=== PATIENT | female | born 1975 | race Hispanic/Latino ===

== ENCOUNTER 2024-04-27 18:15 | Emergency (ER) | payer OTHER ==
[2024-04-27 19:19] LABS: Specific Gravity 1.023 (1.005-1.030)
[2024-04-27 19:27] LABS: Absolute Eosinophils 0.2 K/uL (0-0.5); Absolute Lymphocytes (CBC) 2.9 K/uL (0.7-4.9); Absolute Monocytes 0.5 K/uL (0.1-1.3); Absolute Neutrophil 5.9 K/uL (1.8-8.0); Albumin 4.1 g/dL (3.4-5.0); Albumin/Globulin Ratio 0.9 (1.1-1.8); Anion Gap 8.9 mEq/L (5.0-15.0); Basophils % 0.5 % (0-1.3); Bilirubin Total 0.4 mg/dL (0.2-1.0); Eosinophils % 1.9 % (0-4.4); Globulin 4.4 g/dL (2.3-3.5); Hematocrit 45.3 % (36.0-45.0); Lymphocytes % 30.4 % (15.3-44.8); MCH 31.8 pg (27.0-35.0); MCHC 35.2 g/dL (32.0-36.0); MCV 90.4 fL (80-100); MPV 9.7 fL (7.6-11.3); Neutrophils % 62.2 % (41.7-73.7); Platelets 288 thou/uL (152-406); Potassium 3.9 mEq/L (3.5-5.1); Protein, Total 8.5 g/dL (6.4-8.2); RBC Red Blood Cell Count 5.01 M/uL (3.86-4.86); Red Cell Distribution Width 13.2 % (12.1-15.2)
[2024-04-27 19:33] LABS: Calcium Oxalate Crystals- Ur Few /HPF (None Seen); Specific Gravity 1.023 (1.005-1.030); Sqamous Epithelial <5 /HPF (None Seen); Urine Bacteria None Seen /HPF (<20); Urine Bilirubin NEGATIVE (Negative); Urine Blood Negative (Negative); Urine Clarity Extremely Turbid (Clear); Urine Color Yellow (Yellow); Urine Culture Reflex Order NOT NEEDED; Urine Glucose 3+ (Negative); Urine Ketones NEGATIVE (Negative); Urine Micro Reflex YN NO BILL MICROSCOPIC; Urine Mucus Slight /HPF (None Seen); Urine Nitrite NEGATIVE (Negative); Urine Protein TRACE (Negative); Urine RBC <5 /HPF (None Seen); Urine Urobilinogen Normal (Normal); Urine WBC None Seen /HPF (<5); Urine pH 6.5 (5.0-7.0)
[2024-04-27] MEDS ORDERED: ONDANSETRON 4 MG/2 ML VIAL ONE (20:00)
[2024-04-27] MEDS ORDERED: NA CHLORIDE 0.9% 1,000 ML ONE (20:01)
[2024-04-27] MEDS ORDERED: FAMOTIDINE 20 MG/2 ML VIAL IV ONE (20:01)
[2024-04-27 20:54] LABS: SARS-CoV-2 Antigen CONTROL BLUE LINE VIS/BG OK; SARS-CoV-2 Antigen Rapid Res Negative (Negative)
[2024-04-27 20:58] LABS: Magnesium 2.4 mg/dL (1.6-2.4); Troponin High Sensitivity 3.2 pg/mL (<58.9)
--- NOTE | 2024-04-27 20:58 | RAD REPORT ---
EXAM DESCRIPTION: CT - Head Brain Wo Cont - 04/27/2024 7:29 pm CLINICAL HISTORY: Weakness;Headache COMPARISON: No comparisons TECHNIQUE: Noncontrast head CT images were obtained without IV contrast. Multiplanar reformats were generated and reviewed. All CT scans are performed using dose optimization technique as appropriate and may include automated exposure control or mA/KV adjustment according to patient size. FINDINGS: No intracranial hemorrhage, mass, or edema. Midline structures are unremarkable. Normal ventricular caliber for age. Magana-white matter differentiation is preserved, without evidence of acute infarct. No abnormal extra- axial fluid collections. Mastoid air cells and visualized portions of the paranasal sinuses are clear. No acute bony findings. IMPRESSION: No evidence of an acute intracranial process.
--- NOTE | 2024-04-27 21:07 | RAD REPORT ---
[facility] 7[facility]55 pm CLINICAL HISTORY: weakness COMPARISON: No comparisons TECHNIQUE: Portable AP view of the chest. FINDINGS: The lungs are clear. No pneumothorax or effusion. The cardiomediastinal contours are unre markable. Lower cervical anterior plating hardware present. IMPRESSION: No acute cardiopulmonary process.
[2024-04-27 21:09] LABS: PT Prothrombin Time 11.9 SECONDS (9.4-12.5); Protime INR 1.06
--- NOTE | 2024-04-27 22:28 | ER ---
[facility] Name: Carly Gray Age: 48 yrs Sex: Female : 1975 Arrival Date: 04/27/2024 Time: 18:15 Bed 4 Private MD: Diagnosis: Nausea with vomiting, unspecified;Headache;Weakness;Diabetes mellitus due to underlying condition with hyperglycemia Presentation: 04/27 18:27 Chief complaint: Patient states: N/V, chills, headache, weakness X 3 days. Coronavirus ld1 screen: At this time, the client does not indicate any symptoms associated with coronavirus-19. Ebola Screen: No symptoms or risks identified at this time. Initial Sepsis Screen: Does the patient meet any 2 criteria? No. Patient's initial sepsis screen is negative. Does the patient have a suspected source of infection? No. Patient's initial sepsis screen is negative. Risk Assessment: Do you want to hurt yourself or someone else? Patient reports no desire to harm self or others. Onset of symptoms was April 27, 2024. 18:27 Method Of Arrival: Ambulatory ld1 18:27 Acuity: LEE 3 ld1 Triage Assessment: 18:28 General: Appears in no apparent distress. comfortable, Behavior is calm, cooperative, ld1 appropriate for age. Pain: Denies pain. EENT: No signs and/or symptoms were reported regarding the EENT system. Neuro: Level of Consciousness is awake, alert, obeys commands, Oriented to person, place, time, situation. Cardiovascular: Capillary refill < 3 seconds Patient's skin is warm and dry. Respiratory: Airway is patent Respiratory effort is even, unlabored. GI: Abdomen is round non-distended, Reports nausea, vomiting. : No signs and/or symptoms were reported regarding the genitourinary system. Derm: No signs and/or symptoms reported regarding the dermatologic system. Musculoskeletal: No signs and/or symptoms reported regarding the musculoskeletal system. HERBOLOGIST: 18:28 LMP N/A - Hysterectomy, Not ld1 Historical: - Allergies: 18:26 Sulfa (Sulfonamide Antibiotics); ld1 - Home Meds: 18:29 amlodipine 5 mg tablet 1 tab daily [Active]; lisinopril 5 mg Oral tablet 1 tab daily ld1 [Active]; metoprolol tartrate 25 mg Oral tablet daily [Active]; - PMHx: 18:29 Hypertensive disorder; Diabetes mellitus; ld1 - PSHx: 18:29 Total abdominal hysterectomy; ld1 - Immunization history:: Adult Immunizations up to date. - Infectious Disease History:: Denies. - Social history:: Smoking status: Patient reports the use of cigarette tobacco products, smokes one pack cigarettes per day. Screenin:41 [facility] ED Fall Risk Assessment (Adult) History of falling in the last 3 months, cm10 including since admission No falls in past 3 months (0 pts) Confusion or Disorientation No (0 pts) Intoxicated or Sedated No (0 pts) Impaired Gait No (0 pts) Mobility Assist Device Used No (0 pt) Altered Elimination No (0 pt) Score/Fall Risk Level 0 - 2 = Low Risk Oriented to surroundings, Maintained a safe environment, Assessed \T\ reinforced patient's understanding of fall precautions, Hourly rounding (assess needs \T\ fall precautionary measures) done. Abuse screen: Denies threats or abuse. Denies injuries from another. Nutritional screening: No deficits noted. Tuberculosis screening: No symptoms or risk factors identified. Assessment: 18:43 General: Appears in no apparent distress. uncomfortable, Behavior is calm, cooperative. cm10 Neuro: No deficits noted. Level of Consciousness is awake, alert, obeys commands, Oriented to person, place, time, situation, Appropriate for age. Respiratory: No deficits noted. Airway is patent Respiratory effort is even, unlabored, Respiratory pattern is regular, symmetrical. GI: Reports nausea, vomiting. Derm: No deficits noted. Skin is intact, Skin is pink, warm \T\ dry. Musculoskeletal: Range of motion: intact in all extremities. Vital Signs: 18:27 Pulse 74; Resp 18; Pulse Ox 100% on R/A; Weight 90.72 kg; Height 5 ft. 5 in. ; Pain ld1 0/10; 18:28 BP 176 / 93; ld1 18:28 Temp 98.1(O); ld1 19:00 BP 127 / 71; Pulse 74; Resp 18; Pulse Ox 100% on R/A; Pain 2/10; al5 21:00 BP 114 / 72; Pulse 68; Resp 18; Pulse Ox 100% on R/A; Pain 0/10; al5 18:27 Body Mass Index 33.28 (90.72 kg, 165.1 cm) ld1 18:27 Pain Scale: Adult ld1 19:00 Pain Scale: Adult al5 21:00 Pain Scale: Adult al5 ED Course: 18:18 Patient arrived in ED. im 18:28 Triage completed. ld1 18:29 Arm band placed on right wrist. ld1 18:30 Bradford Mcgrath PA is PHCP. cp 18:30 Clayton Khan MD is Attending Physician. cp 18:31 Inserted saline lock: 20 gauge in right antecubital area, using aseptic technique. ld1 Blood collected. 18:37 Marissa Dewey, RONIT is Primary Nurse. al5 18:41 Patient has correct armband on for positive identification. Bed in low position. Call cm10 light in reach. Side rails up X2. Provided Education on: ER process and procedures. Pulse ox on. NIBP on. 18:41 Door closed. Lights dimmed. Warm blanket given. cm10 19:30 CT Head Brain wo Cont In Process Unspecified. EDMS 19:56 XRAY Chest (1 view) In Process Unspecified. EDMS 20:23 Influenza Screen (a \T\ B) Sent. al5 20:23 SARS RAPID Sent. al5 20:24 Magnesium Sent. al5 20:24 PT-INR Sent. al5 20:24 Troponin HS Sent. al5 22:36 No provider procedures requiring assistance completed. IV discontinued, intact, cm10 bleeding controlled, No redness/swelling at site. Pressure dressing applied. Administered Medications: 20:23 Drug: NS 0.9% IV 1000 ml IV at 1 bolus Per protocol; 1000 mL bolus Route: IV; Rate: 1 al5 bolus; Site: right antecubital; 21:14 Follow up: Response: No adverse reaction; Marked relief of symptoms; IV Intake: 1000ml al5 22:00 Follow up: Response: No adverse reaction; IV Status: Completed infusion; IV Intake: cm10 1000ml 20:23 Drug: Ondansetron IVP 4 mg IVP once; over 2 minutes Route: IVP; Site: right antecubital;al5 21:14 Follow up: Response: No adverse reaction; Marked relief of symptoms al5 20:23 Drug: Famotidine IVP 20 mg IVP once; dilute with 10 mL 0.9% NaCl; give over 2 minutes al5 Route: IVP; Site: right antecubital; 21:14 Follow up: Response: No adverse reaction; Marked relief of symptoms al5 Medication: 18:43 VIS not applicable for this client. cm10 Intake: 21:14 IV: 1000ml; Total: 1000ml. al5 22:00 IV: 1000ml; Total: 2000ml. cm10 Outcome: 22:27 Discharge ordered by MD. cp 22:36 Discharged to home ambulatory, with family, cm10 22:36 Condition: good 22:36 Discharge instructions given to patient, Instructed on discharge instructions, follow up and referral plans. medication usage, Demonstrated understanding of instructions, follow-up care, medications, Prescriptions given X 1, 22:36 Patient left the ED. cm10 Signatures: Dispatcher [employer] EDMS Bradford Mcgrath PA PA cp Sims, Lauren, RN RN ld1 Mandi Hayward Clarissa, RN RN cm10 Marissa Dewey RN RN al5 Corrections: (The following items were deleted from the chart) 18:27 18:26 Allergies: No Known Allergies; ld1 ld1 18:31 18:29 PMHx: None; ld1 ld1
--- NOTE | 2024-04-27 22:28 | EDPHYS ---
Physician Documentation [facility] Name: Carly Gray Age: 48 yrs Sex: Female : 1975 Arrival Date: 04/27/2024 Time: 18:15 Bed 4 Private MD: ED Physician Clayton Khan HPI: 04/27 19:15 This 48 yrs old Female presents to ER via Ambulatory with complaints of cp General Weakness, Nausea. 19:15 The patient presents to the emergency department with nausea, that is moderate, cp vomiting, that is intermittent. 19:15 Onset: The symptoms/episode began/occurred 3 day(s) ago. Associated signs and symptoms: cp Pertinent positives: fatigue, general weakness, Pertinent negatives: abdominal pain, fever, chest pain. Severity of symptoms: in the emergency department the symptoms are unchanged despite home interventions. [employer] SPECIALIST: 18:28 LMP N/A - Hysterectomy, Not ld1 Historical: - Allergies: 18:26 Sulfa (Sulfonamide Antibiotics); ld1 - Home Meds: 18:29 amlodipine 5 mg tablet 1 tab daily [Active]; lisinopril 5 mg Oral tablet 1 tab daily ld1 [Active]; metoprolol tartrate 25 mg Oral tablet daily [Active]; - PMHx: 18:29 Hypertensive disorder; Diabetes mellitus; ld1 - PSHx: 18:29 Total abdominal hysterectomy; ld1 - Immunization history:: Adult Immunizations up to date. - Infectious Disease History:: Denies. - Social history:: Smoking status: Patient reports the use of cigarette tobacco products, smokes one pack cigarettes per day. ROS: 19:20 Constitutional: Positive for chills, fatigue, Negative for body aches, fever, cp 19:20 Eyes: Negative for injury, pain, redness, and discharge, cp 19:20 ENT: Negative for drainage from ear(s), ear pain, sore throat, difficulty swallowing, difficulty handling secretions, 19:20 Cardiovascular: Negative for chest pain, 19:20 Respiratory: Negative for cough, shortness of breath, wheezing, 19:20 Abdomen/GI: Positive for nausea, Negative for diarrhea, constipation, active vomiting, 19:20 Back: Negative for pain at rest, pain with movement, 19:20 Neuro: Positive for headache, weakness, Negative for altered mental status, syncope, 19:20 All other systems are negative, Exam: 19:23 Constitutional: The patient appears in no acute distress, alert, awake, cp non-diaphoretic, non-toxic, well developed, well nourished, 19:23 Head/Face: Normocephalic, atraumatic. cp 19:23 Eyes: Periorbital structures: appear normal, Conjunctiva: normal, no exudate, no injection, Sclera: no appreciated abnormality, Lids and lashes: appear normal, bilaterally, 19:23 ENT: External ear(s): are unremarkable, Nose: is normal, Mouth: Lips: moist, Oral mucosa: pink and intact, moist, Posterior pharynx: is normal, airway is patent, no erythema, no exudate, 19:23 Neck: ROM/movement: is normal, is supple, without pain, no range of motions limitations, no meningismus, no nuchal rigidity, 19:23 Chest/axilla: Inspection: normal, 19:23 Cardiovascular: Rate: normal, Rhythm: regular, Edema: is not appreciated, JVD: is not appreciated, 19:23 Respiratory: the patient does not display signs of respiratory distress, Respirations: normal, no use of accessory muscles, no retractions, labored breathing, is not present, Breath sounds: are clear throughout, no decreased breath sounds, no stridor, no wheezing, 19:23 Abdomen/GI: Inspection: abdomen appears normal, Palpation: abdomen is soft and non-tender, in all quadrants, 19:23 Back: CVA tenderness, is absent, 19:23 Skin: cellulitis, is not appreciated, no rash present. 19:23 Neuro: Orientation: to person, place \T\ time. Mentation: is normal, Motor: moves all fours, no focal deficits, 20:12 ECG was reviewed by the Attending Physician. cp Vital Signs: 18:27 Pulse 74; Resp 18; Pulse Ox 100% on R/A; Weight 90.72 kg; Height 5 ft. 5 in. ; Pain ld1 0/10; 18:28 BP 176 / 93; ld1 18:28 Temp 98.1(O); ld1 19:00 BP 127 / 71; Pulse 74; Resp 18; Pulse Ox 100% on R/A; Pain 2/10; al5 21:00 BP 114 / 72; Pulse 68; Resp 18; Pulse Ox 100% on R/A; Pain 0/10; al5 18:27 Body Mass Index 33.28 (90.72 kg, 165.1 cm) ld1 18:27 Pain Scale: Adult ld1 19:00 Pain Scale: Adult al5 21:00 Pain Scale: Adult al5 MDM: 18:31 Patient medically screened. cp 22:25 Data reviewed: vital signs, nurses notes, lab test result(s), EKG, radiologic studies, cp CT scan, plain films. 22:25 Differential diagnosis: gastritis, viral gastroenteritis, gastroenteritis, uti, sepsis. cp I considered the following discharge prescriptions or medication management in the emergency department Medications were administered in the Emergency Department. See MAR. Care significantly affected by the following chronic conditions: Diabetes. Counseling: I had a detailed discussion with the patient and/or guardian regarding the historical points, exam findings, and any diagnostic results supporting the discharge/admit diagnosis, lab results, radiology results, the need for outpatient follow up, a family practitioner, to return to the emergency department if symptoms worsen or persist or if there are any questions or concerns that arise at home. Response to treatment: the patient's symptoms have mildly improved after treatment, and as a result, I will discharge patient. 04/27 18:44 Order name: CBC with Diff; Complete Time: 20:17 cm10 04/27 20:17 Interpretation: Normal except: RBC 5.01; HGB 16.0; HCT 45.3. cp 04/27 18:44 Order name: CMP; Complete Time: 20:17 cm10 04/27 20:17 Interpretation: Normal except: GLUC 270; GFR 88; ALK 162; CA 10.3; TP 8.5; GLOB 4.4; cp A/G 0.9. 04/27 18:44 Order name: Urinalysis W/Microscopic; Complete Time: 20:17 cm10 04/27 21:20 Interpretation: Reviewed. 04/27 18:48 Order name: Test, Urine; Complete Time: 20:17 cm10 04/27 19:11 Order name: Magnesium; Complete Time: 21:19 cp 04/27 21:19 Interpretation: Reviewed. 04/27 19:11 Order name: PT-INR; Complete Time: 21:19 cp 04/27 19:11 Order name: Troponin HS; Complete Time: 21:19 04/27 21:19 Interpretation: Reviewed. 04/27 19:14 Order name: SARS RAPID; Complete Time: 21:19 04/27 19:14 Order name: Influenza Screen (a \T\ B); Complete Time: 21:19 cp 04/27 21:20 Interpretation: Reviewed. 04/27 21:20 Order name: Glucose, Ancillary Testing; Complete Time: 21:21 EDMS 04/27 19:11 Order name: XRAY Chest (1 view); Complete Time: 21:19 04/27 19:15 Order name: CT Head Brain wo Cont; Complete Time: 21:19 04/27 21:20 Interpretation: Report reviewed. 04/27 19:11 Order name: Cardiac monitoring; Complete Time: 20:24 cp 04/27 19:11 Order name: EKG - Nurse/Tech; Complete Time: 20:24 cp 04/27 19:11 Order name: IV Saline Lock; Complete Time: 19:40 04/27 19:11 Order name: Labs collected and sent; Complete Time: 19:40 04/27 19:11 Order name: O2 Per Protocol; Complete Time: 19:40 cp 04/27 19:11 Order name: O2 Sat Monitoring; Complete Time: 19:40 04/27 19:11 Order name: Accucheck Blood Glucose; Complete Time: 21:42 cp 04/27 21:21 Order name: PO challenge; Complete Time: 21:41 cp EC:12 Rate is 66 beats/min. Rhythm is regular. TN interval is normal. QRS interval is normal. cp QT interval is normal. T waves are Inverted in lead aVR. Interpreted by me. Reviewed by me. Administered Medications: 20:23 Drug: NS 0.9% IV 1000 ml IV at 1 bolus Per protocol; 1000 mL bolus Route: IV; Rate: 1 al5 bolus; Site: right antecubital; 21:14 Follow up: Response: No adverse reaction; Marked relief of symptoms; IV Intake: 1000ml al5 22:00 Follow up: Response: No adverse reaction; IV Status: Completed infusion; IV Intake: cm10 1000ml 20:23 Drug: Ondansetron IVP 4 mg IVP once; over 2 minutes Route: IVP; Site: right antecubital;al5 21:14 Follow up: Response: No adverse reaction; Marked relief of symptoms al5 20:23 Drug: Famotidine IVP 20 mg IVP once; dilute with 10 mL 0.9% NaCl; give over 2 minutes al5 Route: IVP; Site: right antecubital; 21:14 Follow up: Response: No adverse reaction; Marked relief of symptoms al5 Disposition: 04/28 07:25 Co-signature as Attending Physician, Clayton Khan MD I reviewed the patient's care rt provided by the Advanced Practice Provider and agree with the diagnosis and treatment plan. Disposition Summary: 04/27/24 22:27 Discharge Ordered Notes: Location: Home cp Problem: new cp Symptoms: have improved cp Condition: Stable cp Diagnosis - Nausea with vomiting, unspecified cp - Headache cp - Weakness cp - Diabetes mellitus due to underlying condition with hyperglycemia cp Followup: cp - With: Private Physician - When: 2 - 3 days - Reason: Recheck today's complaints Discharge Instructions: - Discharge Summary Sheet cp - General Headache Without Cause cp - Nausea and Vomiting, Adult cp - Weakness cp - Diabetes Mellitus and Exercise cp - Diabetes Mellitus Basics cp - Diabetes Mellitus Action Plan cp Forms: - Medication Reconciliation Form cp - Antibiotic Education cp - Prescription Opioid Use cp - Patient Portal Instructions cp - Leadership Thank You Letter cp Prescriptions: - Zofran 4 mg Oral Tablet - take 1 tablet ORAL route every 12 hours As needed; 20 tablet; Refills: 0, cp Product Selection Permitted Signatures: Dispatcher [employer] EDMS Bradford Mcgrath PA PA cp Tata Castellon RN RN ld1 Clayton Khan MD MD rt Marissa Dewey RN RN al5 Chana Oneill RN cm10 Corrections: (The following items were deleted from the chart) 04/27 18:27 18:26 Allergies: No Known Allergies; ld1 ld1 18:31 18:29 PMHx: None; ld1 ld1 18:49 18:49 Test, Urine+UC.LAB.BRZ ordered. EDMS EDMS 19:12 19:12 MAGNESIUM+C.LAB.BRZ ordered. EDMS EDMS 19:12 19:12 PROTIME (+INR)+COAG.LAB.BRZ ordered. EDMS EDMS 19:12 19:12 Troponin High Sensitivity+C.LAB.BRZ ordered. EDMS EDMS 19:12 19:12 Chest Single View+RAD.RAD.BRZ ordered. EDMS EDMS 19:14 19:14 SARS-COV-2 Antigen Rapid+I.LAB.BRZ ordered. EDMS EDMS 19:14 19:14 Influenza Screen (A \T\ B)+BA.LAB.BRZ ordered. EDMS EDMS 19:15 19:15 Head Brain Wo Cont+CT.RAD.BRZ ordered. EDMS EDMS 04/28 22:24 04/27 19:20 Constitutional: Negative for body aches, fever, cp cp
[2024-04-27 23:18] VITALS: BP 114/72; TEMP 98.1; O2SAT 100
--- NOTE | 2024-04-29 13:08 | EKG ---
Test Date: 2024-04-27 Test Time: 20:07:59 Dude Wrangler: LAST MEASUREMENT RESULTS: Intervals: Rate: 66 FL: 162 QRSD: 82 QT: 420 QTc: 440 [place]: P: 57 FL: 162 QRS: 55 T: 21 INTERPRETIVE STATEMENTS: Normal sinus rhythm Normal ECG No previous ECG available for comparison Electronically Signed On 04-29-24 13:03:45 CDT by Zeyad Palacio
== END 2024-04-27 22:36 | disposition home or self-care (01) ==
LOC: ER 18:15
DX: R11.2 Nausea with vomiting, unspecified (principal); R51.9 Headache, unspecified; R53.1 Weakness; E08.65 Diabetes mellitus due to underlying condition with hyperglycemia; Z11.52 Encounter for screening for COVID-19
CPT/HCPCS: 85025; 81001; 36415; 83735; 81025; 85610; 82947; 84484; 80053; 87804 ×2; 70450; 71045; 87811; J2405; J7030; 93005